=== PATIENT | female | born 1995 | race Hispanic/Latino ===

== ENCOUNTER 2017-05-21 20:44 | Emergency (ER) | payer MEDICAID, SELFPAY ==
[2017-05-21 21:21] LABS: Hemoglobin 13.6 g/dL (12.0-16.0); Mean Corpuscular HGB CONC 33.8 g/dL (32.0-36.0); Mean Corpuscular Hemoglobin 32.7 pg (27.0-31.0); Mean Corpuscular Volume 96.8 fl (81.0-99.0); Mean Platelet Volume 6.7 fL (7.4-10.4); Platelet Count 186 thou/uL (130-400); RBC Distribution Width 11.8 % (11.5-14.5); Red Blood Cell (RBC) Count 4.15 mill/uL (4.20-5.40); White Blood Cell (WBC) Count 7.9 thou/uL (4.8-10.8)
[2017-05-21 21:25] LABS: Bilirubin Negative (Negative); Blood, Urine Moderate (Negative); Clarity CLEAR (Clear); Glucose, Urine (Dipstick) Negative (Negative); Leukocyte Negative (Negative); Nitrite Negative (Negative); Protein, Urine (Dipstick) Negative (Neg-Trace); Specific Gravity, Urine 1.005 (1.002-1.036); Urobilinogen 0.2 mg/dL (0.2-1.0)
[2017-05-21 21:27] LABS: Bacteria/HPF Rare-Few HPF (None Seen); Hyaline Casts/LPF 0-3 HYALINE CAST LPF (0-3 Hyaline); RBC/HPF 0-3 HPF (0-3); Squamous Epithelial 0-3 HPF (0-3); WBC/HPF 0-3 HPF (0-3)
[2017-05-21 21:52] LABS: Band 1 % (5-11); Eosinophils 1 % (0-10); Lymphocytes 45 % (21-51); MDiff Complete? YES; Monocytes 11 % (0-10); Neutrophil 31 % (42-75); Reactive Lymphocytes 11 % (0-10)
--- NOTE | 2017-05-21 23:55 | ULT ---
ULTRASOUND PELVIS TRANSVAGINAL WITH DOPPLER: 05/21/17 HISTORY: Vaginal bleeding. . COMPARISON: None. TECHNIQUE: Real time nunez scale and color doppler analysis of the pelvis was performed via transabdominal and tr ansvaginal approach. FINDINGS: Both ovaries are normal. Adequate vascular flow. There appears to be a distorted gestational sac with in the uterine fundus with subchorionic hemorrhage. Mean sac diameter is approximately 15 mm. Uterus is otherwise normal. IMPRESSION: Findings suspicious or, although not diagnostic of, failure. Distorted gestational sac with small yolk sac with no pole. Followup HCG and ultrasound recommended. POS: [facility]
== END 2017-05-21 23:35 | disposition home or self-care (01) ==
LOC: ERS 20:44
DX: O20.0 Threatened abortion (principal); Z3A.01 Less than 8 weeks gestation of pregnancy
CPT/HCPCS: 76856; 81003; 81015; 84702; 85025; 86900; 86901

== ENCOUNTER 2017-05-22 08:35 | Emergency (ER) | payer MEDICAID ==
[2017-05-22 09:20] LABS: Bilirubin Negative (Negative); Blood, Urine Large (Negative); Clarity CLOUDY (Clear); Glucose, Urine (Dipstick) Negative (Negative); Leukocyte Negative (Negative); Nitrite Negative (Negative); Protein, Urine (Dipstick) Negative (Neg-Trace); Urobilinogen 0.2 mg/dL (0.2-1.0)
[2017-05-22 09:22] LABS: Bacteria/HPF None Seen HPF (None Seen); Hyaline Casts/LPF 0-3 HYALINE CAST LPF (0-3 Hyaline); Pathc Cast-AUWi Flag 0.13 (0-2.49); RBC/HPF GREATER THAN 50-TNTC HPF (0-3); Squamous Epithelial 0-3 HPF (0-3); WBC/HPF 0-3 HPF (0-3)
== END 2017-05-22 10:29 | disposition home or self-care (01) ==
LOC: ERS 08:35
DX: O20.0 Threatened abortion (principal); Z3A.01 Less than 8 weeks gestation of pregnancy
CPT/HCPCS: 36415; 76856; 81003; 81015; 84702; 85025; 86900; 86901; 99284

== ENCOUNTER 2018-09-11 01:22 | Inpatient (IN) | payer MEDICAID, OTHER ==
[2018-09-11 02:01] VITALS: BMI 26.2
[2018-09-11] MEDS ORDERED: Sodium Chloride 0.9% (PF) 10 ML VIAL ONE (03:00)
[2018-09-11] MEDS ORDERED: Bupivacaine 0.25% HCL 30 ML VIAL ONE (03:00)
[2018-09-11] MEDS ORDERED: hydrALAZINE 20 MG/ML VIAL SLOW IVP PRN ×3 (03:29→10:50)
--- NOTE | 2018-09-11 03:32 | PDOC.LDHP ---
Labor and Delivery H&P Chief complaint: contractions HPI: 23 yo at 38.4 weeks by LMP c/w 12.4wk sono here for CTX. Started yesterday around 0200, have been increasing in frequency and strength. Endorses FM, denies LOF/VB/VD. Uncomplicated , no other concerns. Current gestational age (weeks): 38 (38.4) Due date: 09/17/18 Dating criteria: first trimester ultrasound Current complications: none Current medications: pre-darline vitamins Previous surgical history: none Allergies/Adverse Reactions: Allergies Allergy/AdvReac Type Severity Reaction Status Date / Time acetaminophen [From Tylenol] Allergy Verified 09/11/18 18:13 Social history: none - Physical Exam Vital signs reviewed and normal: yes General: NAD, resting Heart: RRR Lungs: CTAB Abdomen: NTTP Extremeties: no edema FHT: category 1 - Vaginal Exam cm dilated: 3 Effacement: 75% Station: -1 - OB Labs Blood type: O RH: positive Antibody Screen: negative HIV: negative RPR: negative HEPSAg: negative GBS: negative Rubella: immune - Plan Plan: observation in L&D -: sIUP, term -/-1 -FHT: Cat I, CTX q2-4min -GBS negative -Baby vertex -desires epidural -will recheck in two hours to see if makes cervical change Anemia of -has been on iron -vitals stable LSIL -will need follow up on this outpatient Discussed with Dr. woodruff Addendum - Attending - Attending Attestation Date/Time: 09/11/182127 I personally evaluated the patient and discussed the management with Dr. Higginbotham I agree with the History, Examination, Assessment and Plan documented above with any addition or exceptions noted below.
[2018-09-11] MEDS: Lactated Ringer's 1,000 ML IV SCH ×2 (04:30→05:00)
[2018-09-11] MEDS ORDERED: Ondansetron PF 4 MG/2 ML Vial IVP PRN ×3 (04:38→10:50)
[2018-09-11] MEDS ORDERED: NS / Oxytocin 40 units/1000ml 1,000 ML IV PRN (04:38)
[2018-09-11] MEDS ORDERED: Promethazine HCl 25 MG/ML VIAL IM PRN ×2 (04:38→05:39)
[2018-09-11] MEDS ORDERED: Lidocaine 1% (PF) 30 ML VIAL SC PRN (04:38)
[2018-09-11 04:51] LABS: Hemoglobin 12.6 g/dL (12.0-16.0); Mean Corpuscular HGB CONC 34.6 g/dL (32.0-36.0); Mean Corpuscular Hemoglobin 33.6 pg (27.0-31.0); Mean Corpuscular Volume 97.3 fL (78.0-98.0); Platelet Count 214 thou/uL (130-400); RBC Distribution Width 12.5 % (11.5-14.5); Red Blood Cell (RBC) Count 3.75 mill/uL (4.20-5.40); White Blood Cell (WBC) Count 12.5 thou/uL (4.8-10.8)
[2018-09-11] MEDS ORDERED: Fentanyl 4 mcg/Bup 0.1% Cadd 100 ML ONE (04:52)
[2018-09-11 05:33] LABS: HBSAg Index 0.27 S/CO (0-0.99); Hep B Surf Ag Non-Reactive S/CO (NonReactive)
[2018-09-11] MEDS ORDERED: diphenhydrAMINE 50 MG/ML VIAL IVP PRN (05:39)
[2018-09-11] MEDS ORDERED: Acetaminophen 325 MG TAB PO PRN (05:39)
[2018-09-11] MEDS ORDERED: Naloxone HCl 0.4 mg/ml Vial IVP PRN ×2 (05:39)
[2018-09-11] MEDS ORDERED: ePHEDrine/0.9% NaCl/PF SYRINGE 50 mg/10 ml SLOW IVP PRN (05:39)
[2018-09-11] MEDS ORDERED: Lactated Ringer's 500 ML IV PRN (05:39)
[2018-09-11] MEDS ORDERED: Fentanyl 4 mcg/Bupivacaine 0.1% Cassette 100 ML EPIDURAL SCH (05:45)
[2018-09-11] MEDS ORDERED: Communication Order-Pharmacy FS SCH (05:45)
--- NOTE | 2018-09-11 06:03 | PDOC.EVN ---
Event Note - Event Note Event Note: On recheck patient was 5/80/-1, showing cervical change. Discussed need to admit for anticipated delivery since patient is in latent labor. Patient desires epidural. Will recheck in a few hours or sooner if indicated. Answered all questions, patient agrees with plan. Addendum - Attending - Attending Attestation Date/Time: 09/11/182129 I personally evaluated the patient and discussed the management with Dr. Higginbotham I agree with the History, Examination, Assessment and Plan documented above with any addition or exceptions noted below. Admit for spontaneous labor at term
[2018-09-11 07:38] LABS: Syphilis Antibody Nonreactive (Nonreactive); Syphilis Antibody Index 0.05 S/CO (<1.00 Non-Reactive)
--- NOTE | 2018-09-11 09:13 | PDOC.OPDEL ---
OB Operative/Delivery Note Delivery Dr/Surgeon: Shai/Nelson/Aquilino Pre-Delivery Diagnosis: active labor Procedure/Post Delivery Dx: spontaneous vaginal delivery Weeks gestation: 38 (.4) Anesthesia: epidural - Findings A Sex: male - 1 min: 8 - 5 min: 9 - Additional Findings/Plan Placenta delivered: spontaneous Repaired Obstetrical Laceration: 2nd degree Estimated blood loss: 250 Compilations/Other Findings: This is 23yo F now 1 @ 38.4wks who delivered a viable M at 0739 on 09/11/18. Following an uneventful antepartum course, a vigorous male was delivered over an intact perineum in the occipitoanterior position. Anterior Shoulder and then remainder of the body delivered. No nuchal cord. The head was held down and mouth and nares were bulb suctioned. Cord clamped after delayed cord clamping and cut and cord blood collected. Placenta delivered intact in the Amos presentation with a 3 vessel cord noted. Fundal massage was performed and the fundus was firm. The cervix and vagina were inspected and 2nd degree lacerations noted and repaired with 3.0 vicryl in the usual fashion with good approximation and hemostasis after lidocaine was injected at site. Infant went to nursery in good condition for routine care. Apgars were 8/9 at 1 & 5 minutes, respectively. Patient tolerated delivery well and went to after routine recovery/care. Post delivery plan: routine recovery Addendum - Attending - Attending Attestation Date/Time: 09/11/182122 I was present for and assisted in the entire uncomplicated performed by Garth Rolle and Nelson. I agree with documentation above with my additions below. As RNs were cleaning patient an area was noted to be bleeding. On reinspection a deep right sidewall laceration was noted and was repaired in running fashion using 3-0 vicryl. Hemostasis was achieved. Pt tolerated well.
[2018-09-11] MEDS ORDERED: Milk Of Magnesia 30 ML UDCUP PO PRN (10:50)
[2018-09-11] MEDS ORDERED: Misoprostol 200 MCG TAB VAG PRN (10:50)
[2018-09-11] MEDS ORDERED: NS / Oxytocin 40 units/1000ml 1,000 ML IV SCH (10:50)
[2018-09-11] MEDS ORDERED: Methylergonovine 0.2 MG TAB PO PRN (10:50)
[2018-09-11] MEDS ORDERED: Benzocaine-Menthol 82.5 ML CAN TOP PRN (10:50)
[2018-09-11] MEDS ORDERED: Bisacodyl 10 MG SUPP PR PRN (10:50)
[2018-09-11] MEDS ORDERED: diphenhydrAMINE 25 MG CAP PO PRN (10:50)
[2018-09-11] MEDS: Ibuprofen 800 MG TAB PO SCH (14:24)
[2018-09-11] MEDS: Ferrous Sulfate 325 MG TAB PO SCH (15:58)
[2018-09-12] MEDS: Docusate Calcium (SURFAK) 240 MG CAP PO SCH ×3 (06:48→21:37)
[2018-09-12] MEDS: Ibuprofen 800 MG TAB PO SCH ×4 (06:48→21:37)
--- NOTE | 2018-09-12 07:06 | PDOC.OBPPN ---
FMR OB PN: Subj - Interval History Day: 1 23 yo at 38.4 WGA delivered via @ 0739 on 09/11. Patient doing well. Pain well controlled, minimal lochia. Ambulating and tolerating PO. Endorses flatus. Breast feeding without much difficulty. Denies N/V. Unsure who will follow with outpatient, has list to decide from. FMR OB PN: Obj - Maternal Vital signs: BP: 1112/73 HR: 87 RR: 16 Tmax: 98.7 Pox: 100% on RA Wt: 71.6kg - Urine output I&O: 09/11/18 09/12/18 09/13/18 06:59 06:59 06:59 Output Total 520 Balance -520 FMR OB PN: Exam - Physical Exam General: NAD, awake, alert and oriented HEENT: MMM, conjunctiva clear, grossly normal vision, grossly normal hearing Neck: supple, no LAD Heart: RRR, normal S1/S2, no murmurs/rubs/gallops, pulses present, no edema General: CTAB, no respiratory distress, no rales/rhonchi, no wheezing Abdomen: soft, fundus(cm) (firm 2 cm below umbilicus), bowel sound present Neurological: no focal deficit Skin: good tugor, no jaundice : appropriately tender Lymphatic: no unusual bruising or bleeding, no purpura Psychiatric: intact recent and remote memory, good judgement and insight FMR OB PN: Data - Labs Lab results: Laboratory Results - last 24 hr 09/11/18 04:42 Syphilis IgG/IgM Ab Nonreactive FMR OB PN: A/P - Problem List (1) Term delivered Current Visit: Yes Status: Acute Code(s): O80 - ENCOUNTER FOR FULL-TERM UNCOMPLICATED DELIVERY Assessment and Plan: Continue routine post- care -PNV -Ibuprofen for pain -Encouraged breast feeding -Encouraged ambulation -Anticipate d/c home tomorrow Disposition: Continue routine post- care Discussion: Date/Time: 09/12/18 0704 This H&P was discussed with Dr. Guaman who agrees with the above documentation and plan. Signature: Paula Damon MD, PGY-2 Addendum - Attending - Attending Attestation Date/Time: 09/12/18 1021 I personally evaluated the patient and discussed the management with Dr. Damon and team. I agree with the History, Examination, Assessment and Plan documented above with any addition or exceptions noted below.
[2018-09-12] MEDS: Ferrous Sulfate 325 MG TAB PO SCH ×2 (07:49→13:46)
[2018-09-12] MEDS ORDERED: Adacel (T-DAP) 0.5 ML SYRINGE IM ONE (10:50)
--- NOTE | 2018-09-13 04:57 | PDOC.OBPPN ---
FMR OB PN: Subj - Interval History Day: 2 23 yo at 38.4 WGA delivered via @ 0739 on 09/11. Patient doing well. Pain well controlled, minimal lochia. Ambulating and tolerating PO. Endorses flatus and had BM yesterday. Breast feeding without much difficulty. Denies N/V. Ama to follow with [facility] FMR OB PN: Obj - Maternal Vital signs: BP: 107/57 HR: 77 RR: 18 Tmax: 97.9 Pox: 98% on RA Wt: 71kg - Urine output I&O: 09/11/18 09/12/18 09/13/18 06:59 06:59 06:59 Output Total 520 Balance -520 FMR OB PN: Exam - Physical Exam General: NAD, awake, alert and oriented HEENT: MMM, grossly normal vision, grossly normal hearing Neck: supple, no LAD Heart: RRR, normal S1/S2, no murmurs/rubs/gallops, pulses present, no edema General: CTAB, no respiratory distress, no rales/rhonchi, no wheezing Abdomen: soft, fundus(cm) (2cm below umbilicus) Neurological: no clonus, no focal deficit Skin: good tugor, capillary refill <2 seconds : appropriately tender Psychiatric: intact recent and remote memory, good judgement and insight FMR OB PN: A/P - Problem List (1) Term delivered Current Visit: Yes Status: Acute Code(s): O80 - ENCOUNTER FOR FULL-TERM UNCOMPLICATED DELIVERY Assessment and Plan: Continue routine post- care -PNV -Ibuprofen for pain -Encouraged breast feeding -Encouraged ambulation -Anticipate d/c home today Disposition: Anticipate d/c home today pending bilirubin level Discussion: Date/Time: 09/13/18 6415 This H&P was discussed with Dr. Guaman who agrees with the above documentation and plan. Signature: Paula Damon MD, PGY-2 Addendum - Attending - Attending Attestation Date/Time: 09/13/18 5285 I personally evaluated the patient and discussed the management with Dr. Damon. I agree with the History, Examination, Assessment and Plan documented above with any addition or exceptions noted below.
[2018-09-13] MEDS: Ibuprofen 800 MG TAB PO SCH (06:10)
[2018-09-13] MEDS: Ferrous Sulfate 325 MG TAB PO SCH (07:29)
[2018-09-13] MEDS: Docusate Calcium (SURFAK) 240 MG CAP PO SCH (08:45)
[2018-09-13 08:52] VITALS: BP 111/61; TEMP 98.1
== END 2018-09-13 12:10 | disposition home or self-care (01) | DRG 807 ==
LOC: L&D/OP 01:22 → L&D 06:26 → 3SW 10:49
PROVIDERS: ADMIT Family Medicine; ATTEND Family Medicine
PROC: 10E0XZZ Delivery of Products of Conception, External Approach (ICD-10-PCS; principal; 2018-09-11)
PROC: 0KQM0ZZ Repair Perineum Muscle, Open Approach (ICD-10-PCS; 2018-09-11)
DX: O99.02 Anemia complicating childbirth (principal); Z37.0 Single live birth; D64.9 Anemia, unspecified; Z3A.38 38 weeks gestation of pregnancy; O70.1 Second degree perineal laceration during delivery
CPT/HCPCS: 36415; 51702; 85027; 86780; 86850; 86900; 86901; 87340; 99285; J2001; S0020

== ENCOUNTER 2020-01-28 05:10 | Inpatient (IN) | payer OTHER ==
[2020-01-28] MEDS ORDERED: Lactated Ringer's 1,000 ML IV SCH (05:45)
[2020-01-28] MEDS ORDERED: Ondansetron PF 4 MG/2 ML Vial IVP PRN ×3 (05:45→07:56)
[2020-01-28] MEDS ORDERED: Lidocaine 1% (PF) 30 ML VIAL SC PRN (05:45)
[2020-01-28] MEDS ORDERED: NS / Oxytocin 40 units/1000ml 1,000 ML IV PRN (05:45)
[2020-01-28] MEDS ORDERED: hydrALAZINE 20 MG/ML VIAL SLOW IVP PRN ×2 (05:45→07:56)
[2020-01-28] MEDS ORDERED: Ibuprofen 800 MG TAB PO PRN (05:45)
[2020-01-28] MEDS ORDERED: Butorphanol Tartrate 1 MG/ML VIAL SLOW IVP PRN (05:45)
[2020-01-28] MEDS ORDERED: Fentanyl 4 mcg/Bup 0.1% Cadd 100 ML ONE (05:52)
[2020-01-28 05:58] VITALS: BMI 25.0
[2020-01-28] MEDS ORDERED: NS / Oxytocin 40 units/1000ml 1,000 ML ONE (06:00)
[2020-01-28] MEDS ORDERED: Lidocaine 1% (PF) 30 ML VIAL ONE (06:00)
[2020-01-28 06:16] LABS: Hemoglobin 12.1 g/dL (12.0-16.0); Mean Corpuscular HGB CONC 34.3 g/dL (32.0-36.0); Mean Corpuscular Hemoglobin 32.3 pg (27.0-31.0); Mean Platelet Volume 9.7 fL (7.4-10.4); Platelet Count 215 thou/uL (130-400); RBC Distribution Width 13.6 % (11.5-14.5); Red Blood Cell (RBC) Count 3.75 mill/uL (4.20-5.40); White Blood Cell (WBC) Count 8.6 thou/uL (4.8-10.8)
[2020-01-28 06:44] LABS: HBSAg Index 0.16 S/CO (0-0.99); Hep B Surf Ag Non-Reactive S/CO (NonReactive); Syphilis Antibody Nonreactive (Nonreactive); Syphilis Antibody Index 0.05 S/CO (<1.00 Non-Reactive)
[2020-01-28] MEDS ORDERED: ePHEDrine 50 MG/ML VIAL SLOW IVP PRN (06:51)
[2020-01-28] MEDS ORDERED: Lactated Ringer's 500 ML IV PRN (06:51)
[2020-01-28] MEDS ORDERED: Promethazine HCl 25 MG/ML VIAL IM PRN (06:51)
[2020-01-28] MEDS ORDERED: Naloxone HCl 0.4 mg/ml Vial IVP PRN ×2 (06:51)
[2020-01-28] MEDS ORDERED: diphenhydrAMINE 50 MG/ML VIAL IVP PRN (06:51)
[2020-01-28] MEDS ORDERED: Communication Order-Pharmacy FS SCH (07:00)
[2020-01-28] MEDS ORDERED: Fentanyl 4 mcg/Bupivacaine 0.1% Cassette 100 ML EPIDURAL SCH (07:00)
[2020-01-28] MEDS ORDERED: Milk Of Magnesia 30 ML UDCUP PO PRN (07:56)
[2020-01-28] MEDS ORDERED: Adacel (T-DAP) 0.5 ML SYRINGE IM ONE (07:56)
[2020-01-28] MEDS ORDERED: Benzocaine-Menthol 82.5 ML CAN TOP PRN (07:56)
[2020-01-28] MEDS ORDERED: Lanolin Ointment 7 GM TUBE TOP PRN (07:56)
[2020-01-28] MEDS ORDERED: Bisacodyl 10 MG SUPP PR PRN (07:56)
[2020-01-28] MEDS ORDERED: NS / Oxytocin 40 units/1000ml 1,000 ML IV SCH (07:56)
[2020-01-28] MEDS ORDERED: diphenhydrAMINE 25 MG CAP PO PRN (07:56)
[2020-01-28] MEDS: Docusate Calcium (SURFAK) 240 MG CAP PO SCH ×2 (11:50→21:25)
[2020-01-28] MEDS: Prenatal Vitamin 1 TAB PO SCH (11:50)
[2020-01-28] MEDS: Ferrous Sulfate 325 MG TAB PO SCH ×2 (11:50→18:59)
[2020-01-28 12:16] LABS: SARS-CoV-2 MS2 Positive; SARS-CoV-2 N Gene Negative; SARS-CoV-2 S Gene Negative; SARS-CoV-2 by NAA Not Detected (NotDetected); SARS-CoV-2 orf1ab Negative
[2020-01-28] MEDS ORDERED: Bupivacaine/Epinephrine 0.25% 30 ML VIAL ONE (13:46)
[2020-01-28] MEDS: Ibuprofen 800 MG TAB PO SCH ×2 (14:02→21:25)
[2020-01-29 08:30] VITALS: BP 127/81; TEMP 98.1
[2020-01-29] MEDS: Docusate Calcium (SURFAK) 240 MG CAP PO SCH (09:23)
[2020-01-29] MEDS: Prenatal Vitamin 1 TAB PO SCH (09:23)
[2020-01-29] MEDS: Ibuprofen 800 MG TAB PO SCH (09:45)
[2020-01-29] MEDS: Ferrous Sulfate 325 MG TAB PO SCH (09:46)
== END 2020-01-29 11:10 | disposition home or self-care (01) | DRG 807 ==
LOC: L&D/OP 05:10 → L&D 07:00 → 3SW 09:53
PROVIDERS: ADMIT Family Medicine; ATTEND Family Medicine
PROC: 10E0XZZ Delivery of Products of Conception, External Approach (ICD-10-PCS; principal; 2020-01-28)
PROC: 0KQM0ZZ Repair Perineum Muscle, Open Approach (ICD-10-PCS; 2020-01-28)
DX: O48.0 Post-term pregnancy (principal); Z37.0 Single live birth; Z3A.40 40 weeks gestation of pregnancy; Z88.8 Allergy status to other drugs, medicaments and biological substances; O70.1 Second degree perineal laceration during delivery; O62.3 Precipitate labor; Z20.828 Contact with and (suspected) exposure to other viral communicable diseases
CPT/HCPCS: 36415; 85027; 86780; 86850; 86900; 86901; 87340; 87635; 99285; J2001; U0003

== ENCOUNTER 2023-09-17 12:37 | Outpatient (CLI) | payer OTHER | END 2023-09-17 12:38 | disposition home or self-care (01) | LOC: BICULT 12:37 | PROVIDERS: ATTEND Nurse Practitioner Family | DX: M79.89 Other specified soft tissue disorders (principal); E04.1 Nontoxic single thyroid nodule | CPT/HCPCS: 76536 ==